=== PATIENT | female | born 1940 | race Caucasian/White ===

== ENCOUNTER 2024-10-10 15:48 | Emergency (ER) | payer MEDICARE, OTHER ==
[~2024-10-10] VITALS: Ht 157.5 cm; Wt 67.0 kg
[2024-10-10 16:22] VITALS: TEMP 97.9
[2024-10-10] MEDS: HYDROCODONE/ACETAMINOPHEN 5-325 MG TABLET PO ONE (17:23)
[2024-10-10] MEDS: IBUPROFEN 200 MG TABLET PO ONE (17:23)
[2024-10-10 17:49] LABS: BASOPHILS % (AUTO) 0.6 % (0.0-2.0); EOSINOPHILS % (AUTO) 4.7 % (1.0-6.0); HEMATOCRIT 37.4 % (36-46); HEMOGLOBIN 11.6 g/dL (12.0-16.0); LYMPHOCYTES # (AUTO) 1.4 K/uL (1.0-4.8); LYMPHOCYTES % (AUTO) 20.9 % (22.0-44.0); MEAN CORPUSCULAR HEMOGLOBIN 26.5 pg (26.0-34.0); MEAN CORPUSCULAR HGB CONC 31.1 G/dL (31.0-37.0); MEAN CORPUSCULAR VOLUME 85 fL (80-100); MONOCYTES # (AUTO) 0.4 K/uL (0.1-1.0); MONOCYTES % (AUTO) 6.8 % (2.0-9.0); NEUTROPHILS # (AUTO) 4.4 K/uL (1.8-7.7); PLATELET COUNT (AUTO) 267 K/uL (150-450); RED BLOOD CELL COUNT(AUTO) 4.38 MIL/uL (4.00-5.20); RED CELL DISTRIBUTION WIDTH 16.4 % (11.5-14.5); WHITE BLOOD COUNT (AUTO) 6.5 K/uL (4.5-11.0)
[2024-10-10 18:05] LABS: ANION GAP 4 mmol/L (8-16); CALCIUM, TOTAL 9.1 mg/dL (8.8-10.5); CARBON DIOXIDE 33 mmol/L (22-29); CHLORIDE 105 mmol/L (98-107); CREATININE 0.76 mg/dL (0.60-1.30); GLOMERULAR FILTR. RATE CALC > 60 mL/min (>60); GLUCOSE,RANDOM 95 mg/dL (70-110); POTASSIUM 3.8 mmol/L (3.5-5.1); SODIUM SERUM 142 mmol/L (136-145); UREA NITROGEN, BLOOD 25 mg/dL (7-18)
[2024-10-10] MEDS ORDERED: HYDR-4062 PO (18:58)
[2024-10-10 19:03] VITALS: BP 143/78; PULSE 108; RESP 24; O2SAT 98
== END 2024-10-10 21:32 | disposition home or self-care (01) ==
LOC: EMS 15:50
DX: M17.11 Unilateral primary osteoarthritis, right knee (principal); M25.561 Pain in right knee; J44.9 Chronic obstructive pulmonary disease, unspecified; Z96.641 Presence of right artificial hip joint
CPT/HCPCS: 73502; 80048; 85025; 99284